=== PATIENT | female | born 1985 | race Caucasian/White ===

== ENCOUNTER 2020-07-24 10:21 | Inpatient (IN) ==
[2020-07-24] MEDS ORDERED: ceFAZolin 2 GM PREMIX 2 GM/50 ML BAG IVPB ONE (10:42)
[2020-07-24] MEDS ORDERED: Lactated Ringers 1000 ml BAG 1,000 ML IV ONE (10:42)
[2020-07-24] MEDS ORDERED: Buffered Lidocaine 1% SYRIN 1 ml INTRADERM ONE (10:42)
[2020-07-24] MEDS ORDERED: Lactated Ringers 1000 ml BAG 1,000 ML IV SCH ×2 (11:00→13:00)
[2020-07-24] MEDS ORDERED: Dibucaine 1% OINT 28.35 GM TUBE PR PRN (12:06)
[2020-07-24] MEDS ORDERED: Witch Hazel PAD JAR TOPICAL PRN (12:06)
[2020-07-24] MEDS ORDERED: Glycerin ADULT 2.4 gm SUPP PR PRN (12:06)
[2020-07-24 14:32] LABS: Urine Benzodiazepine Screen None Detected (None Detect); Urine Cannabinoids Screen None Detected (None Detect); Urine Opiates Screen None Detected (None Detect)
[2020-07-24] MEDS ORDERED: Lidocaine 1% VIAL 10 MG/ML VIAL ONE (17:58)
[2020-07-24] MEDS ORDERED: Oxytocin 10 UNITS/ML 1 ML VIAL ONE (17:58)
[2020-07-25] MEDS ORDERED: Lidocaine 1% VIAL 10 MG/ML VIAL ONE (07:32)
[2020-07-25 07:50] LABS: ABS Basophils 0.1 10^3/ul (0-0.2); ABS Eosinophils 0.1 10^3/ul (0-0.6); ABS Lymphocytes 2.1 10^3/ul (1.0-4.8); ABS Monocytes 1.1 10^3/ul (0-0.8); ABS Neutrophils 10.2 10^3/ul (1.5-7.7); Eosinophil % 0.7 %; Hematocrit 38 % (35-47); Hemoglobin 12.7 g/dL (12.0-16.0); Lymphocyte % 15.7 %; Mean Corpuscular HGB Conc 34 g/dL (31-36); Mean Corpuscular Hemoglobin 30 pg (27-31); Mean Corpuscular Volume 89 fL (80-97); Mean Platelet Volume 9.4 fL (7.4-10.4); Platelet Count 324 10^3/uL (150-450); Red Blood Count 4.23 10^6 /uL (3.70-4.87); Red Cell Distribution Width 13 % (10-15); White Blood Count 13.5 10^3/uL (3.5-10.8)
[2020-07-26 07:38] VITALS: BP 132/72
== END 2020-07-26 18:40 | disposition home or self-care (01) | DRG 807 ==
LOC: MCHOBOUT 10:21 → MCHOB 10:40
PROVIDERS: ADMIT Midwife; ATTEND Midwife